=== PATIENT | male | born 1960 | race Caucasian/White ===

== ENCOUNTER 2017-12-07 08:37 | Day surgery (SDC) | payer OTHER ==
[~2017-12-07 08:37] MED LIST: AVAPRO300 MG PO; GABAPENTIN800 MG PO; LANTUS; SYNTHROID50 MCG PO; TOPROL XL25 M1 PO; TRADJENTA5 MG PO; ZOCOR PO; [UNRECOGNIZED DRUG - OTHER] PO
== END 2017-12-07 15:35 | disposition home or self-care (01) ==
LOC: CIR LITO 08:37
DX: N20.0 Calculus of kidney (principal)

== ENCOUNTER 2018-11-02 07:56 | Outpatient (CLI) | payer OTHER | END 2018-11-02 08:34 | disposition home or self-care (01) | LOC: LAB 07:56 | DX: E11.65 Type 2 diabetes mellitus with hyperglycemia (principal); E78.2 Mixed hyperlipidemia; I10 Essential (primary) hypertension; E03.8 Other specified hypothyroidism ==